=== PATIENT | female | born 1960 | race Caucasian/White ===

== ENCOUNTER 2019-01-09 07:12 | Day surgery (SDC) | payer OTHER ==
[2019-01-09] MEDS ORDERED: Midazolam 1 MG/ML 2 ML SDV ONE (07:28)
[2019-01-09] MEDS ORDERED: fentaNYL 100 MCG/2 ML SDV ONE (07:28)
[2019-01-09] MEDS ORDERED: Propofol 200 MG/20 ML SDV ONE ×2 (07:28→09:25)
[2019-01-09] MEDS ORDERED: Sodium Chloride 0.9% 1,000 ML IV SCH (07:45)
--- NOTE | 2019-01-10 07:52 | OR ---
DATE OF PROCEDURE: 01/09/2019 SURGEON: Yehuda Shane MD PROCEDURE: Colonoscopy. FINDINGS: 1. Ascending colon polyp, approximately 5 mm, completely removed using cold biopsy forceps. 2. Descending colon polyp, approximately 1 cm, completely removed using hot snare. 3. Sigmoid colon polyp, approximately 5 mm, completely removed using cold biopsy forceps. COMPLICATIONS: None. ADMINISTRATIVE SERVICES MANAGER: None. ANESTHESIA: MAC. PREOPERATIVE DIAGNOSIS: Family history of colorectal cancer. POSTOPERATIVE DIAGNOSIS: Family history of colorectal cancer. RISKS: Risks, benefits, alternatives, and limitations including, but not limited to infection, bleeding, and perforation were explained to the patient, who wished to proceed. PROCEDURE IN DETAIL: The patient was placed in a left lateral decubitus position. Digital rectal exam was performed without abnormality. Scope was introduced and advanced atraumatically to the ileocecal valve. Scope was brought back through the ascending, transverse, descending colon, and retroflexed. The aforementioned polyps were identified and completely removed. The largest one was the descending colon polyp, which was removed using hot snare. No abnormalities on retroflexion. No diverticulosis. No other abnormalities. The patient tolerated the procedure well. Yehuda Shane MD /[id number]
== END 2019-01-09 10:52 | disposition home or self-care (01) ==
LOC: JP.SDS 07:12
PROVIDERS: ATTEND Surgery
DX: Z12.11 Encounter for screening for malignant neoplasm of colon (principal); D12.2 Benign neoplasm of ascending colon; D12.4 Benign neoplasm of descending colon; D12.5 Benign neoplasm of sigmoid colon; Z80.0 Family history of malignant neoplasm of digestive organs
CPT/HCPCS: 45380; 45385; J2250; J2704; J3010; J7030

== ENCOUNTER 2019-02-07 06:44 | Day surgery (SDC) | payer OTHER ==
[2019-02-07] MEDS ORDERED: Bupivacaine 0.5% 50 ML MDV ONE (07:11)
[2019-02-07] MEDS ORDERED: Lidocaine 1% with EPINEPHrine 1:100,000 50 ML MDV ONE (07:11)
[2019-02-07] MEDS ORDERED: Propofol 200 MG/20 ML SDV ONE (07:19)
[2019-02-07] MEDS ORDERED: Midazolam 1 MG/ML 2 ML SDV ONE (07:19)
[2019-02-07] MEDS ORDERED: fentaNYL 100 MCG/2 ML SDV ONE (07:19)
[2019-02-07] MEDS ORDERED: ceFAZolin 1 GM in Premix Bag 1 BAG IV ONE (07:30)
[2019-02-07] MEDS ORDERED: ceFAZolin 1 GM Vial IM ONE (07:30)
[2019-02-07] MEDS ORDERED: Dextrose 5%-Lactated Ringers 1,000 ML IV SCH (07:30)
--- NOTE | 2019-02-17 09:06 | OR ---
DATE OF PROCEDURE: 02/07/2019 SURGEON: Larry Haley MD PREOPERATIVE DIAGNOSIS: Recurrent inflamed cystic lesion, right lower back. POSTOPERATIVE DIAGNOSIS: Recurrent inflamed cystic lesion, right lower back. OPERATIVE PROCEDURE: Excision of recurrently inflamed cystic lesion in the right lower back with layered closure ([id number]). ANESTHESIA: Local plus IV sedation. INDICATION FOR PROCEDURE: This is a 58-year-old female presenting with an area of what appeared to be a cystic lesion in the right lower back. This has been recurrently inflamed. The patient does report some intermittent drainage present. There is a low-grade inflammation that would appear amenable to excision with primary closure. At this time, plan is to proceed with that excision. The potential risks including bleeding and infection were reviewed, and the patient wishes to proceed. DETAILS OF PROCEDURE: The patient was taken to the operating room and placed in a prone position. IV sedation was administered, after which the back and trunk areas were prepped and draped. The area of concern had been marked out preoperatively and was remarked in the operating room and that area anesthetized with 1% lidocaine mixed with Marcaine. A transversely oriented elliptical incision around the lesion was made and carried down through the skin and subcutaneous tissue. The plane of dissection was intentionally maintained due to the area of concern where the subcutaneous tissue was inflamed mostly. Upon removal of the lesion, hemostasis was obtained with electrocautery and the incision closed with 2 layers of 3-0 Vicryl stitch deep and then a 5-0 Prolene skin stitch. Of note, the lesion plus margin length was 2.5 cm and incision length 4.2 cm. Dressing was applied. The patient was taken to the recovery room in satisfactory condition. Larry Haley MD Job #: [id number]
== END 2019-02-07 09:57 | disposition home or self-care (01) ==
LOC: JP.SDS 06:44
PROVIDERS: ATTEND Surgery
DX: L72.0 Epidermal cyst (principal); I10 Essential (primary) hypertension; K21.9 Gastro-esophageal reflux disease without esophagitis; Z91.041 Radiographic dye allergy status; Z88.1 Allergy status to other antibiotic agents; Z88.0 Allergy status to penicillin
CPT/HCPCS: 11403; 12032; 88304; J0690; J2250; J2704; J3010; J3490; J7042

== ENCOUNTER 2021-01-27 06:15 | Day surgery (SDC) | payer OTHER ==
[2021-01-27] MEDS ORDERED: Propofol 200 MG/20 ML SDV ONE (07:16)
[2021-01-27] MEDS ORDERED: fentaNYL 100 MCG/2 ML SDV ONE (07:16)
[2021-01-27] MEDS ORDERED: Midazolam 1 MG/ML 2 ML SDV ONE (07:16)
[2021-01-27] MEDS ORDERED: Sodium Chloride 0.9% 1,000 ML IV SCH (07:30)
--- NOTE | 2021-01-27 10:32 | OR ---
DATE OF PROCEDURE: 01/27/2021 SURGEON: Yehuda Shane MD PROCEDURE: Colonoscopy. FINDINGS: Normal colonoscopy. COMPLICATIONS: None. TEACHER AIDE: None. ANESTHESIA: MAC. PREOPERATIVE DIAGNOSIS: Screening colonoscopy. POSTOPERATIVE DIAGNOSIS: Screening colonoscopy. RISKS: Risks, benefits, alternatives, and limitations including, but not limited to infection, bleeding, perforation, false positives and false negatives were explained to the patient who wished to proceed. PROCEDURE IN DETAIL: The patient was placed in left lateral decubitus position. Digital rectal exam was performed without abnormality. Scope was introduced and advanced atraumatically to the ileocecal valve. Scope was brought back to the ascending, transverse, descending colon, and retroflexed. No evidence of old or new blood. No masses. No polyps. No diverticulosis. No abnormalities on retroflexion. Greater than 8 minutes was spent removing the scope. Prep was acceptable, approximately 90% of the luminal surface could be seen. The patient tolerated the procedure well. Yehuda Shane MD /[id number]
== END 2021-01-27 10:00 | disposition home or self-care (01) ==
LOC: JP.SDS 06:15
PROVIDERS: ATTEND Surgery
DX: Z12.11 Encounter for screening for malignant neoplasm of colon (principal); E78.5 Hyperlipidemia, unspecified; I10 Essential (primary) hypertension
CPT/HCPCS: 45378; J2250; J2704; J3010; J7030